=== PATIENT | female | born 1965 | race Caucasian/White ===

== ENCOUNTER → 2017-07-28 | Outpatient (CLI) | payer BC, OTHER ==
--- NOTE | 2017-07-28 13:28 | REP ---
PA and lateral chest: Comparison is a rib series dated 12/23/2015. There is minor discoid atelectasis inferiorly in the right lung and inferiorly in the left lung. Lung knight otherwise clear. Cardiac size is normal. The nate, mediastinum, and bony thorax are. Impression: Minor zones of discoid atelectasis bilaterally. Otherwise, negative PA and lateral chest. Signed by Destin Her MD 07/28/2017 01:20 P
== END ==
LOC: M WUC 11:47
PROVIDERS: ATTEND Physician Assistant
DX: J20.9 Acute bronchitis, unspecified (principal)

== ENCOUNTER → 2017-10-14 | Outpatient (REF) | payer BC, OTHER | LOC: M LAB REF 19:26 | PROVIDERS: ATTEND Physician Assistant | DX: J03.90 Acute tonsillitis, unspecified (principal) ==

== ENCOUNTER → 2017-11-06 | Outpatient (CLI) | payer BC, OTHER | LOC: M WUC 10:46 | DX: R05 Cough (principal) | CPT/HCPCS: 71046 ==